=== PATIENT | male | born 1940 | race Caucasian/White ===

== ENCOUNTER 2017-09-24 06:35 | Day surgery (SDC) | payer MEDICARE, MEDICAID ==
[2017-09-23 15:13] LABS: HEMATOCRIT 47.3 % (42.0-54.0); HEMOGLOBIN 16.9 g/dL (13.5-17.5); MCH 35.1 pg (26.0-34.0); MCHC 35.7 g/dL (31.0-37.0); MCV 98.1 fL (80.0-100.0); RBC 4.82 10x6/uL (4.20-6.10); WBC 8.4 10x3/uL (4.8-10.8)
[~2017-09-24] VITALS: Ht 182.9 cm; Wt 109.1 kg
--- NOTE | ~2017-09-24 | OP ---
PATIENT NAME: CATRACHITA GARCIA MEDICAL RECORD: [id number] :38 LOCATION:[facility] ADMISSION DATE: SURGEON: LISA CUEVA MD DATE OF OPERATION: 09/24/2017 SURGEON: Lisa Cueva MD PREOPERATIVE DIAGNOSES: Lumbar spinal stenosis, L3-L4 bilaterally with bilateral foraminal stenosis. POSTOPERATIVE DIAGNOSES: Lumbar spinal stenosis, L3-L4 bilaterally with bilateral foraminal stenosis. PROCEDURE: Left L3-L4 lumbar laminotomy, medial facetectomy and foraminotomy with sublaminar decompression on the right and bilateral foraminotomies at L3-L4. DESCRIPTION OF TECHNIQUE: After induction of general endotracheal anesthesia, the patient was rolled prone on a Caesar frame. Lumbar spine was prepped and draped in usual sterile fashion. Fluoroscopic x-ray and spinal needle localized to L3-L4 interspace on the left side. A stab incision was created with #11 blade and series of dilators used to advance a METRx retractor to the L3-L4 interspace on the left side. Level was confirmed with fluoroscopic x-ray. A microscope and Midas Judson drill were used to perform laminotomy, medial facetectomy and foraminotomy at L3-L4 on the left. Hypertrophied ligamentum flavum was removed with Cloward rongeurs. Following this, the L3 and L4 nerve roots and the central dura was decompressed well on the left side. The METRx retractor was tilted to the opposite side. The spinous process at L3 was undermined with Midas-Judson drill. The ligamentum flavum was removed from the sublaminar space at L3 and L4 on the opposite side. A foraminotomy was carried out at L3-L4 on the right thus decompressing the L3 and L4 nerve roots on the right side. Meticulous hemostasis was maintained throughout the wound. Wound was irrigated with copious amounts of Ancef irrigant solution. The retractor was removed. The fascia was closed with 2-0 Vicryl suture. The subdermal layer was closed with 3-0 Vicryl suture and the skin was closed with dev. A sterile dressing was applied to the wound. The patient was awakened in good condition and taken to recovery. All counts were reported as correct. Estimated blood loss was minimal. TRANSINT:[id number] Voice Confirmation ID: [id number] DOCUMENT ID: [id number] LISA CUEVA MD at 1709 CC: [id number] DICTATION DATE: 11/07/171916 [facility]: 11/08/17 0533 [facility] 09/25/17 [address] [id number] [place] [address]
[~2017-09-24 06:35] MED LIST: ASPIRIN325 MG PO; DIOVAN40 MG; HYDROCODONE-APA1 TAB PO; LASIX20 MG; PLAVIX75 MG PO; TOPROL XL25 MG PO; ZETIA10 MG PO; ZOCOR20 MG PO
[2017-09-24] MEDS ORDERED: MULTIPLE VITAMI1 TA1 PO (07:48)
[2017-09-24] MEDS ORDERED: VITAMIN D31000 UNIT PO (07:48)
[2017-09-24] MEDS ORDERED: VITAMIN B COMPL1 TAB PO (07:49)
[2017-09-24] MEDS ORDERED: TURMERIC PO (07:50)
[2017-09-24 08:06] VITALS: BP 145/83; BMI 32.6
[2017-09-24 21:19] VITALS: BP 127/66
[2017-09-24 23:31] VITALS: BP 139/82; Ht 182.9 cm; Wt 109.1 kg
[2017-09-24 23:47] VITALS: BP 130/51
[2017-09-25 04:05] VITALS: BP 131/62
[2017-09-25 07:52] VITALS: BP 155/78
[2017-09-25 12:24] VITALS: BP 131/69
[2017-09-25 15:32] VITALS: BP 128/72
== END 2017-09-25 21:59 | disposition home or self-care (01) ==
LOC: D.OPS 06:35 → D.MS 06:35 → D.PAN 08:30 → D.OPS 08:30 → D.MS 18:41 → D.OPS 09-25 21:59
PROVIDERS: Anesthesiology
DX: M48.061 Spinal stenosis, lumbar region without neurogenic claudication (principal); Z01.812 Encounter for preprocedural laboratory examination